=== PATIENT | female | born 1985 | race African-American/Black ===

== ENCOUNTER 2017-03-30 12:55 | Emergency (ER) | payer SELFPAY ==
[~2017-03-30] VITALS: Ht 167.6 cm; Wt 86.2 kg
[2017-03-30 13:33] VITALS: BP 113/67
[2017-03-30] MEDS ORDERED: AMOX875T PO (14:24)
--- NOTE | 2017-03-30 14:25 | PHYS DOC ---
Past Medical History Past Medical History: No Pertinent History Past Surgical History: Alcohol Use: None Drug Use: None Adult General Chief Complaint Chief Complaint: SORE THROAT HPI HPI Patient is a 31 year old female who presents with sore throat for 3 days. Patient is also complaining of subjective fevers. Denies any cough or congestion. Review of Systems Review of Systems Constitutional: Denies fever or chills [] Eyes: Denies change in visual acuity, redness, or eye pain [] HENT: sore throat [] Respiratory: see HPI Cardiovascular: No additional information not addressed in HPI [] GI: Denies abdominal pain, nausea, vomiting, bloody stools or diarrhea [] : Denies dysuria or hematuria [] Musculoskeletal: Denies back pain or joint pain [] Integument: Denies rash or skin lesions [] Neurologic: Denies headache, focal weakness or sensory changes [] Allergies Allergies Allergies Coded Allergies Type Severity Reaction Last Updated Verified shellfish derived Allergy Severe Swelling 11/13/14 No Physical Exam Physical Exam Constitutional: Well developed, well nourished, no acute distress, non-toxic appearance. [] HENT: Normocephalic, atraumatic, bilateral external ears normal, oropharynx moist, no oral exudates, nose normal. [] mild erythema to posterior pharynx. Eyes: PERRLA, EOMI, conjunctiva normal, no discharge. [] Neck: Normal range of motion, no tenderness, supple, no stridor. [] Cardiovascular:Heart rate regular rhythm, no murmur [] Lungs & Thorax: Bilateral breath sounds clear to auscultation [] Abdomen: Bowel sounds normal, soft, no tenderness, no masses, no pulsatile masses. [] Skin: Warm, dry, no erythema, no rash. [] Back: No tenderness, no CVA tenderness. [] Extremities: No tenderness, no cyanosis, no clubbing, ROM intact, no edema. [] Neurologic: Alert and oriented X 3, normal motor function, normal sensory function, no focal deficits noted. [] Psychologic: Affect normal, judgement normal, mood normal. [] Current Patient Data Vital Signs Vital Signs Date Time Temp Pulse Resp B/P (MAP) Pulse Ox O2 Delivery O2 Flow Rate FiO2 03/30/17 13:33 99.3 72 18 99 Room Air 99.3 EKG EKG [] Radiology/Procedures Radiology/Procedures [] Course & Med Decision Making Course & Med Decision Making Pertinent Labs and Imaging studies reviewed. (See chart for details) Patient is in the ED with sore throat for 3 days and subjective fevers, rapid strep was positive. Discharged with amoxicillin. Tylenol/ Motrin for pain or fever. Saltwater gargles recommended. Follow-up with PCP in 1-2 weeks. Dragon Disclaimer Dragon Disclaimer This electronic medical record was generated, in whole or in part, using a voice recognition dictation system. Departure Departure Impression: Primary Impression: Acute streptococcal pharyngitis Additional Impression: Fever Disposition: HOME, SELF-CARE Condition: STABLE Referrals: NO PCP (PCP) follow up with your docto in one week Patient Instructions: Fever, Adult, Strep Throat Additional Instructions: You tested positive for strep infection. Ensure you complete your antibiotics. Use saltwater gargles as needed. Take Tylenol every 4 hours and Motrin every 6 hours for pain or fever. Follow-up with the doctor in 1-2 weeks. Return to the emergency room symptoms worsen. Scripts Amoxicillin (AMOXICILLIN) 875 Mg Tablet 1 TAB PO BID, #20 TAB Prov: LUCAS GUERRERO APRN 03/30/17 Problem Qualifiers Additional Impression: Fever Fever type: unspecified Qualified Codes: R50.9 - Fever, unspecified LUCAS GUERRERO APRN Mar 30, 2017 14:25
[2017-03-30] MEDS ORDERED: PENICILLIN G BENZATHINE LA 1,200,000 UNIT/2 ML DISP.SYRIN. IM ONE (14:30)
[2017-03-31 07:48] LABS: NEGATIVE OBC STREP NEG; POSITIVE OBC STREP POS
== END 2017-03-30 14:42 | disposition home or self-care (01) ==
LOC: ER 12:55
DX: J02.0 Streptococcal pharyngitis (principal); Z91.013 Allergy to seafood
CPT/HCPCS: 87880; 96372; 99283; J0561

== ENCOUNTER 2018-03-01 15:34 | Emergency (ER) | payer OTHER ==
[2018-03-01 16:12] LABS: ADD MAN DIFF? NO
[2018-03-01 16:18] LABS: BASO % 0 % (0-3); EOS # 0.1 x10^3/uL (0.0-0.7); EOS % 2 % (0-3); HEMOGLOBIN 12.6 g/dL (12.0-15.5); LYMPH # 2.7 x10^3/uL (1.0-4.8); LYMPH % 43 % (24-48); MEAN CORPUSCULAR HEMOGLOBIN 28 pg (25-35); MEAN CORPUSCULAR HGB CONC 33 g/dL (31-37); MEAN CORPUSCULAR VOLUME 83 fL (79-100); MONO # 0.5 x10^3/uL (0.0-1.1); MONO % 8 % (0-9); NEUT % 47 % (31-73); PLATELET COUNT 281 x10^3/uL (140-400); RED BLOOD COUNT 4.58 x10^6/uL (3.50-5.40); RED CELL DISTRIBUTION WIDTH 13.5 % (11.5-14.5); WHITE BLOOD COUNT 6.4 x10^3/uL (4.0-11.0)
[2018-03-01 16:27] LABS: ANION GAP 7 (6-14); BLOOD UREA NITROGEN 11 mg/dL (7-20); CARBON DIOXIDE 29 mmol/L (21-32); CHLORIDE 102 mmol/L (98-107); CREATININE 0.9 mg/dL (0.6-1.0); GFR 88.4; GLUCOSE 72 mg/dL (70-99); POTASSIUM 3.6 mmol/L (3.5-5.1); SODIUM 138 mmol/L (136-145)
[2018-03-01 16:37] LABS: PARTIAL THROMBOPLASTIN TIME 30 SEC (24-38)
[2018-03-01 16:41] LABS: D-DIMER 0.41 ug/mlFEU (0.00-0.50)
== END 2018-03-01 17:40 | disposition home or self-care (01) ==
LOC: ER 17:40
DX: M25.511 Pain in right shoulder (principal); Z91.013 Allergy to seafood; Z98.890 Other specified postprocedural states
CPT/HCPCS: 36415; 71046; 80048; 85025; 85379; 85730; 99285-25

== ENCOUNTER 2018-09-23 14:17 | Emergency (ER) | payer OTHER ==
[~2018-09-23] VITALS: Ht 167.6 cm; Wt 97.1 kg
[~2018-09-23 14:17] MED LIST: AMOX875T PO; CYCL10TA2 PO; NAPR500T8 PO
[2018-09-23 14:34] VITALS: BP 115/69
[2018-09-23] MEDS ORDERED: KETOROLAC 60 MG/2 ML VIAL. IM ONE (14:45)
[2018-09-23] MEDS ORDERED: DICL50TA2 PO (15:12)
--- NOTE | 2018-09-23 15:12 | PHYS DOC ---
Past Medical History Past Medical History: No Pertinent History Past Surgical History: Alcohol Use: None Drug Use: None Adult General Chief Complaint Chief Complaint: BACK PAIN OR INJURY HPI HPI Patient is a 32 year old female who presents with back pain x 1 week with no fever, known injury or associated symptoms. She states that her muscles hurt. She has not tried OTC pain medication. Review of Systems Review of Systems Constitutional: Denies fever or chills [] Eyes: Denies change in visual acuity, redness, or eye pain [] HENT: Denies nasal congestion or sore throat [] Respiratory: Denies cough or shortness of breath [] Cardiovascular: No additional information not addressed in HPI [] GI: Denies abdominal pain, nausea, vomiting, bloody stools or diarrhea [] : Denies dysuria or hematuria [] Musculoskeletal: See HPI Integument: Denies rash or skin lesions [] Neurologic: Denies headache, focal weakness or sensory changes [] Endocrine: Denies polyuria or polydipsia [] All other systems were reviewed and found to be within normal limits, except as documented in this note. Current Medications Current Medications Current Medications Medications (Trade) Dose Ordered Sig/Jase Start Time Stop Time Status Last Admin Dose Admin Ketorolac Tromethamine (Toradol Im) 60 mg 1X ONCE 09/23/18 14:45 09/23/18 14:46 DC 09/23/18 14:47 60 MG Allergies Allergies Allergies Coded Allergies Type Severity Reaction Last Updated Verified shellfish derived Allergy Severe Swelling 11/13/14 No Physical Exam Physical Exam Constitutional: Well developed, well nourished, no acute distress, non-toxic appearance. [] HENT: Normocephalic, atraumatic, bilateral external ears normal, oropharynx moist, no oral exudates, nose normal. [] Eyes: PERRLA, EOMI, conjunctiva normal, no discharge. [] Neck: Normal range of motion, no tenderness, supple, no stridor. [] Cardiovascular:Heart rate regular rhythm, no murmur [] Lungs & Thorax: Bilateral breath sounds clear to auscultation [] Abdomen: Bowel sounds normal, soft, no tenderness, no masses, no pulsatile masses. [] Skin: Warm, dry, no erythema, no rash. [] Back: generalized muscle tenderness, no CVA tenderness. [] Extremities: No tenderness, no cyanosis, no clubbing, ROM intact, no edema. [] Neurologic: Alert and oriented X 3, normal motor function, normal sensory function, no focal deficits noted. [] Psychologic: Affect normal, judgement normal, mood normal. [] Current Patient Data Vital Signs EKG EKG [] Radiology/Procedures Radiology/Procedures [] Course & Med Decision Making Course & Med Decision Making Pertinent Labs and Imaging studies reviewed. (See chart for details) [] Dragon Disclaimer Dragon Disclaimer This electronic medical record was generated, in whole or in part, using a voice recognition dictation system. Departure Departure Impression: Primary Impression: Musculoskeletal pain Disposition: HOME, SELF-CARE Condition: STABLE Referrals: NO PCP (PCP) Patient Instructions: Back Pain, Adult Additional Instructions: Take the medication as prescribed. Increase fluids and rest. Do not use ibuprofen with this medication. Follow-up with your primary care provider in 4 days if not improving or return to the emergency department if worsening. Scripts Diclofenac Potassium (DICLOFENAC POTASSIUM) 50 Mg Tablet 1 TAB PO BID for pain, #30 TAB 1 Refill Prov: KENTON SHIELDS APRN 09/23/18 KENTON SHIELDS APRN Sep 23, 2018 15:12
== END 2018-09-23 16:23 | disposition home or self-care (01) ==
LOC: ER 14:17
DX: M79.18 Myalgia, other site (principal); Z98.890 Other specified postprocedural states; Z91.013 Allergy to seafood
CPT/HCPCS: 96372; 99283; J1885

== ENCOUNTER 2019-08-02 23:19 | Emergency (ER) | payer BC, OTHER ==
[~2019-08-02] VITALS: Ht 170.2 cm; Wt 99.8 kg
[~2019-08-02 23:19] MED LIST changes: +DICL50TA2 PO
[2019-08-02 23:50] VITALS: BP 117/65
[2019-08-02] MEDS ORDERED: OSEL75CA PO (23:51)
--- NOTE | 2019-08-02 23:51 | PHYS DOC ---
Past Medical History Past Medical History: No Pertinent History Past Surgical History: Alcohol Use: None Drug Use: None Adult General Chief Complaint Chief Complaint: FLU SYMPTOM HPI HPI Patient is a 33 year old female who presents to the ED today with a fever that began today. Patient is in the ED with this plan with the same complaints. Review of Systems Review of Systems Constitutional: Reports fever Eyes: Denies change in visual acuity, redness, or eye pain [] HENT: Denies nasal congestion or sore throat [] Respiratory: Denies cough or shortness of breath [] Cardiovascular: No additional information not addressed in HPI [] GI: Denies abdominal pain, nausea, vomiting, bloody stools or diarrhea [] : Denies dysuria or hematuria [] Musculoskeletal: Denies back pain or joint pain [] Integument: Denies rash or skin lesions [] Neurologic: Denies headache, focal weakness or sensory changes [] All other systems were reviewed and found to be within normal limits, except as documented in this note. Allergies Allergies Allergies Coded Allergies Type Severity Reaction Last Updated Verified shellfish derived Allergy Severe Swelling 11/13/14 No Physical Exam Physical Exam Constitutional: Well developed, well nourished, no acute distress, non-toxic appearance. [] HENT: Normocephalic, atraumatic, bilateral external ears normal, oropharynx moist, no oral exudates, nose normal. [] Eyes: PERRLA, EOMI, conjunctiva normal, no discharge. [] Neck: Normal range of motion, no tenderness, supple, no stridor. [] Cardiovascular:Heart rate regular rhythm, no murmur [] Lungs & Thorax: Bilateral breath sounds clear to auscultation [] Abdomen: Bowel sounds normal, soft, no tenderness, no masses, no pulsatile masses. [] Skin: Warm, dry, no erythema, no rash. [] Back: No tenderness, no CVA tenderness. [] Extremities: No tenderness, no cyanosis, no clubbing, ROM intact, no edema. [] Neurologic: Alert and oriented X 3, normal motor function, normal sensory function, no focal deficits noted. [] Psychologic: Affect normal, judgement normal, mood normal. [] EKG EKG [] Radiology/Procedures Radiology/Procedures [] Course & Med Decision Making Course & Med Decision Making Pertinent Labs and Imaging studies reviewed. (See chart for details) This is a 33-year-old. Patient presenting to the ED today with a fever that began today. She likely has influenza. We'll discharge her with Tamiflu. Tylenol/Motrin recommended for fever or pain. Follow-up with primary care doctor in 1-2 weeks. Madiha Disclaimer Dragon Disclaimer This electronic medical record was generated, in whole or in part, using a voice recognition dictation system. Departure Departure Impression: Primary Impression: Fever Disposition: 01 HOME, SELF-CARE Condition: STABLE Referrals: UNKNOWN PCP NAME (PCP) Follow-up in 1-2 weeks with your own doctor Patient Instructions: Fever, Adult, Influenza, Adult Additional Instructions: You were evaluated in the emergency room for fever, we suspect you have influenza. Please buy the Tamiflu prescribed and start taking it. Take Tylenol/ibuprofen as needed for pain or fever. Push fluids, rest, maintain good hand hygiene and follow-up with your doctor in 1-2 weeks Scripts Oseltamivir Phosphate (TAMIFLU) 75 Mg Capsule 1 CAP PO BID, #10 CAP Prov: LUCAS GUERRERO [employer] SAL[employer] 08/02/19 Problem Qualifiers Primary Impression: Fever Fever type: unspecified Qualified Codes: R50.9 - Fever, unspecified LUCAS GUERRERO [employer] SALES MANAGER Aug 02, 2019 23:51
[2019-08-03] MEDS ORDERED: IBUPROFEN 200 MG TABLET. PO ONE
[2019-08-03] MEDS ORDERED: ACETAMINOPHEN 500 MG TABLET PO ONE
== END 2019-08-03 00:11 | disposition home or self-care (01) ==
LOC: ER 23:19
DX: R50.9 Fever, unspecified (principal); Z98.890 Other specified postprocedural states
CPT/HCPCS: 99283

== ENCOUNTER 2020-07-19 12:15 | Emergency (ER) | payer BC ==
[~2020-07-19] VITALS: Ht 167.6 cm; Wt 105.0 kg
[~2020-07-19 12:15] MED LIST changes: +OSEL75CA PO
[2020-07-19 12:17] VITALS: BP 126/76
--- NOTE | 2020-07-19 12:43 | PHYS DOC ---
Past Medical History Past Medical History: No Pertinent History Past Surgical History: Smoking Status: Never Smoker Alcohol Use: None Drug Use: None General Adult EDM: Chief Complaint: DENTAL PROBLEM HPI: HPI: Patient is a 34 year old female who presents with states she went to the dentist yesterday and they told her that she had a possible broken tooth or gum line infection to the left upper back side of her mouth. Patient states she was given amoxicillin, Tylenol threes and ibuprofen. She states that she is still in a lot of pain and that the pain comes back before she is due for more Tylenol 3. Patient states she called her dentist to see if she can have more medication and stated they would not order her any more Tylenol 3 or anything stronger. Patient is here today for pain control. She rates her pain a 6 out of 10. She states that when she got here that the Tylenol 3 and ibuprofen has finally kicked in and she is feeling better. Patient denies fever, nausea, vomiting. Review of Systems: Review of Systems: Constitutional: Denies fever or chills. [] Eyes: Denies change in visual acuity. [] HENT: Denies nasal congestion or sore throat. + Dental pain [] Respiratory: Denies cough or shortness of breath. [] Cardiovascular: Denies chest pain or edema. [] GI: Denies abdominal pain, nausea, vomiting, bloody stools or diarrhea. [] : Denies dysuria. [] Musculoskeletal: Denies back pain or joint pain. [] Integument: Denies rash. [] Neurologic: Denies headache, focal weakness or sensory changes. [] Endocrine: Denies polyuria or polydipsia. [] Lymphatic: Denies swollen glands. [] Psychiatric: Denies depression or anxiety. [] Heart Score: Risk Factors: Risk Factors: DM, Current or recent (<one month) smoker, HTN, HLP, family history of CAD, obesity. Risk Scores: Score 0 - 3: 2.5% MACE over next 6 weeks - Discharge Home Score 4 - 6: 20.3% MACE over next 6 weeks - Admit for Clinical Observation Score 7 - 10: 72.7% MACE over next 6 weeks - Early Invasive Strategies Allergies: Allergies: Allergies Coded Allergies Type Severity Reaction Last Updated Verified shellfish derived Allergy Severe Swelling 11/13/14 No Physical Exam: PE: Constitutional: Well developed, well nourished, no acute distress, non-toxic appearance. [] HENT: Normocephalic, atraumatic, bilateral external ears normal, oropharynx moist, no oral exudates, nose normal. [] Eyes: PERRLA, EOMI, conjunctiva normal, no discharge. [] Neck: Normal range of motion, no tenderness, supple, no stridor. [] Cardiovascular:Heart rate regular rhythm, no murmur [] Lungs & Thorax: Bilateral breath sounds clear to auscultation [] Abdomen: Bowel sounds normal, soft, no tenderness, no masses, no pulsatile masses. [] Skin: Warm, dry, no erythema, no rash. [] Back: No tenderness, no CVA tenderness. [] Extremities: No tenderness, no cyanosis, no clubbing, ROM intact, no edema. [] Neurologic: Alert and oriented X 3, normal motor function, normal sensory function, no focal deficits noted. [] Psychologic: Affect normal, judgement normal, mood normal. Normal physical exam [] Current Patient Data: Vital Signs: Vital Signs Date Time Temp Pulse Resp B/P (MAP) Pulse Ox O2 Delivery O2 Flow Rate FiO2 07/19/20 12:17 98.5 71 16 126/76 (93) 97 Room Air 98.5 EKG: EKG: [] Radiology/Procedures: Radiology/Procedures: [] Course & Med Decision Making: Course & Med Decision Making Pertinent Labs and Imaging studies reviewed. (See chart for details) See HPI. Patient is to continue taking ibuprofen and Tylenol 3. I did offer her a dental block but she refused. We also spoke of trying Orajel. I also educated her that it may take 2 to 3 days for the antibiotic to kick in. Upon examination looking the mouth I saw no gumline redness, irritation, swelling and no broken teeth or dental caries. There is no tenderness or swelling to the side of the face and there was no tenderness to the gumline, mucosa of the mouth. No abscess. Afebrile. Spoke in full complete sentences. Alert and oriented x4. Patient states that she will continue doing ibuprofen and Tylenol 3 follow-up with her dentist. [] Madiha Disclaimer: Madiha Disclaimer: This electronic medical record was generated, in whole or in part, using a voice recognition dictation system. Departure Departure Impression: Primary Impression: Pain, dental Disposition: 01 DC HOME SELF CARE/HOMELESS Condition: STABLE Referrals: DM BASHIR MD (PCP) Patient Instructions: Dental Pain Additional Instructions: Follow up with dentist. Take medication as prescribed. You can take 600 mg of ibuprofen every 6 hour or 800 mg of ibuprofen every 8 hours. Try using a cold pack to the side of your face. KALE ARROYO APRN Jul 19, 2020 12:43
== END 2020-07-19 12:48 | disposition home or self-care (01) ==
LOC: ER 12:15
DX: K08.89 Other specified disorders of teeth and supporting structures (principal); Z91.013 Allergy to seafood
CPT/HCPCS: 99281; 99282